=== PATIENT | male | born 1970 | race Caucasian/White ===

== ENCOUNTER 2017-01-16 23:20 | Emergency (ER) | payer MEDICAID, OTHER ==
[~2017-01-16] VITALS: Ht 167.6 cm; Wt 123.0 kg
[2017-01-17] MEDS ORDERED: TETANUS, DIPHTHERIA, PERTUSSIS VAC/PF 0.5ML (>7YR OLD) IM ONE (03:00)
[2017-01-17 03:50] VITALS: BP 145/78
== END 2017-01-17 03:50 | disposition home or self-care (01) ==
LOC: ER 23:22
DX: S81.851A Open bite, right lower leg, initial encounter (principal); Z98.890 Other specified postprocedural states; W54.0XXA Bitten by dog, initial encounter; Y93.89 Activity, other specified; Y92.89 Other specified places as the place of occurrence of the external cause
CPT/HCPCS: 90471; 90715; 99283

== ENCOUNTER 2021-10-10 09:20 | Emergency (ER) | payer OTHER ==
[~2021-10-10] VITALS: Ht 165.1 cm; Wt 100.0 kg
[2021-10-10] MEDS ORDERED: SODIUM CHLORIDE 0.9% 1,000 ML IV ONE ×2 (09:30→13:30)
[2021-10-10 09:56] LABS: HEMOGLOBIN. 14.9 g/dL (14.0-18.0); MEAN CORPUSCULAR HEMOGLOBIN 31.4 pg (28.0-32.0); MEAN CORPUSCULAR VOLUME 92.7 fL (80.0-94.0); MEAN PLATELET VOLUME 9.6 fl (7.4-10.4); PLATELET 251 x1000/uL (130-400); RED BLOOD CELL COUNT 4.74 mill/uL (4.7-6.1); RED CELL DISTRIBUTION WIDTH 13.2 % (11.6-14.6)
[2021-10-10 10:05] LABS: CHLORIDE 108 mEq/L (98-107)
[2021-10-10 10:16] LABS: PLATELET ESTIMATE NORMAL
[2021-10-10] MEDS ORDERED: HYDRALAZINE 20MG/ML VIAL IV ONE (12:15)
[2021-10-10 15:25] VITALS: BP 156/94
== END 2021-10-10 15:54 | disposition short-term general hospital (02) ==
LOC: ER 09:20
DX: E11.65 Type 2 diabetes mellitus with hyperglycemia (principal); N17.9 Acute kidney failure, unspecified; E78.00 Pure hypercholesterolemia, unspecified; I10 Essential (primary) hypertension
CPT/HCPCS: 36415; 80053; 82962; 84484; 85025; 96361; 96374; 99291; J0360; J7030